=== PATIENT | female | born 1980 | race Caucasian/White ===

== ENCOUNTER 2017-07-09 12:20 | Emergency (ER) | payer BC ==
[2017-07-09 12:44] VITALS: BP 147/100
--- NOTE | 2017-07-09 15:10 | ED ---
Skin Complaint - HPI Summary HPI Summary: Pt here w/ finger lac. Was moving her hand in the arm when she accidentally struck it against the hinge of a door and cut herself. Was bleeding - controlled w/ pressure. Minimal pain. Imms are UTD. Denies numbness, tingling, weakness. Does not want anything for pain. - History of Current Complaint Chief Complaint: EDExtremityUpper Time Seen by Provider: 07/09/17 14:12 Stated Complaint: FINGER LAC Hx Obtained From: Patient Pain Intensity: 5 - Allergy/Home Medications Allergies/Adverse Reactions: Allergies Allergy/AdvReac Type Severity Reaction Status Date / Time No Known Allergies Allergy Verified 07/09/17 12:42 PMH/Surg Hx/FS Hx/Imm Hx Previously Healthy: Yes Endocrine/Hematology History: Denies: Hx Anticoagulant Therapy, Hx Blood Disorders - Immunization History Immunizations Up to Date: Yes Infectious Disease History: No Infectious Disease History: Denies: Hx of Known/Suspected MRSA, Traveled Outside the in Last 30 Days - Family History Known Family History: Positive: None - Social History Occupation: Employed Full-time Alcohol Use: Occasionally Hx Substance Use: No Substance Use Type: Reports: None Hx Tobacco Use: No Smoking Status (MU): Never Smoked Tobacco Review of Systems Positive: no symptoms reported Musculoskeletal: Negative Skin: Other - lac Neurological: Negative Psychological: Normal All Other Systems Reviewed And Are Negative: Yes Physical Exam Triage Information Reviewed: Yes Vital Signs On Initial Exam: Initial Vitals Temp Pulse Resp BP Pulse Ox 96.8 F 82 16 147/100 99 07/09/17 12:40 07/09/17 12:40 07/09/17 12:40 07/09/17 12:40 07/09/17 12:40 Vital Signs Reviewed: Yes Appearance: Positive: Well-Appearing, No Pain Distress, Well-Nourished Skin: Positive: Warm, Dry - linear laceration over dorsum of Lt middle finger about the PIP joint - no bleeding, 1mm deep - no structures within tissue observed as it's quite shallow Head/Face: Positive: Normal Head/Face Inspection Eyes: Positive: EOMI ENT: Positive: Hearing grossly normal Respiratory/Lung Sounds: Positive: Breath Sounds Present Cardiovascular: Positive: Pulses are Symmetrical in both Upper and Lower Extremities Musculoskeletal: Positive: Normal, Strength/ROM Intact Neurological: Positive: Normal, Sensory/Motor Intact, Alert, Oriented to Person Place, Time, CN Intact II-III Psychiatric: Positive: Normal - [place] Coma Scale Coma Scale Total: 15 Procedures - Laceration/Wound Repair 1 Location: upper extremity - Lt middle finger Description: Linear Irrigated w/ Saline (ccs): 250 - water and hibaclens solution Laceration/Wound Explored: clean Closure: Skin Adhesive, SteriStrips Layer Closure?: No Sterile Dressing Applied?: Yes - steristrips/dermabond - splint - N/V intact before and after Diagnostics - Vital Signs Vital Signs Temp Pulse Resp BP Pulse Ox 07/09/17 12:40 96.8 F 82 16 147/100 99 - Laboratory Lab Statement: Any lab studies that have been ordered have been reviewed, and results considered in the medical decision making process. Course/Dx - Diagnoses Provider Diagnoses: Laceration of left middle finger Discharge - Discharge Plan Condition: Stable Disposition: HOME Patient Education Materials: Finger Laceration (ED), Skin Adhesive Care (ED), Steristrips (ED) Referrals: [facility] [facility] [Outside] Additional Instructions: Keep finger clean, dry and in splint until steristrips fall off in 5 days - do not remove on your own, these will fall off on their own Keep finger rested, iced and elevated for pain/swelling You may take ibuprofen with food for pain Monitor for signs/symptoms of infection - redness, swelling, streaking, fever, chills - if these present, follow-up with PCP or go to Urgent Care, ED
== END 2017-07-09 15:25 | disposition home or self-care (01) ==
LOC: ED 12:20
DX: S61.213A Laceration without foreign body of left middle finger without damage to nail, initial encounter (principal); W22.09XA Striking against other stationary object, initial encounter; Y92.9 Unspecified place or not applicable
CPT/HCPCS: 12001; 99281